=== PATIENT | female | born 1980 | race Caucasian/White ===

== ENCOUNTER → 2018-05-19 | Outpatient (REF) | payer OTHER ==
[2018-05-19 13:38] LABS: CONTROL LINE UCG INT CTR LINE PRESENT; URINE PREG TEST NEGATIVE (NEGATIVE)
== END ==
LOC: M SMT 13:12
DX: N20.0 Calculus of kidney (principal)

== ENCOUNTER → 2018-11-08 | Outpatient (CLI) | payer OTHER ==
--- NOTE | 2018-11-08 21:28 | REP ---
Clinical: Nephrolithiasis. Technique: Two supine views of the abdomen and pelvis. Findings: Small bilateral intrarenal calculi (left greater than right) are identified measuring up to approximately 3 mm. No obvious ureteral calcifications identified. Bowel gas pattern is nonspecific. The skeletal structures are intact. Impression: Small bilateral intrarenal calculi up to 3 mm (left greater than right). Electronically Signed by Cameron Baptiste MD 11/08/2018 09:18 P
== END ==
LOC: M SMT 11:44
PROVIDERS: ATTEND Nurse Practitioner Family
DX: N20.0 Calculus of kidney (principal)

== ENCOUNTER → 2019-03-26 | Outpatient (CLI) | payer OTHER ==
[~2019-03-26] MED LIST: BIRTH CONTROL PO; CLOB0.0548 TOP; MULTCAP PO; OMEP20CA3 PO; ZOLO100T PO
--- NOTE | 2019-03-26 13:12 | REP ---
KUB ONE VIEW: HISTORY: Kidney stones. COMPARISON: 11/08/2018. A small amount of air is present in the intestine. There are no air fluid levels or dilated loops of intestine. There is no pneumoperitoneum. Calcifications are present overlying the left kidney consistent with nephrolithiasis. There is no definite right nephrolithiasis. IMPRESSION: Left nephrolithiasis. Electronically Signed by Eulogio Ruff MD 03/26/2019 01:14 P
== END ==
LOC: M SMT 10:03
PROVIDERS: ATTEND Nurse Practitioner Family
DX: N20.0 Calculus of kidney (principal)
CPT/HCPCS: 74018; G0463

== ENCOUNTER → 2019-03-28 | Outpatient (CLI) | payer OTHER ==
[2019-03-28 18:11] LABS: BLOOD UREA NITROGEN 10 MG/DL (7-18); CALCIUM LEVEL 8.7 MG/DL (8.5-10.1); CARBON DIOXIDE LEVEL 26 MEQ/L (21-32); CHLORIDE LEVEL 103 MEQ/L (98-107); GLOMERULAR FILTRATION RATE > 60.0 (>60); GLUCOSE, FASTING 87 MG/DL (70-100); SODIUM LEVEL 136 MEQ/L (136-145)
[2019-03-28 18:14] LABS: HEMOGLOBIN 12.4 g/dl (12.0-15.5); MEAN CORPUSCULAR HEMOGLOBIN 28.8 pg (27.0-33.0); MEAN CORPUSCULAR HGB CONC 32.6 g/dl (32.0-36.5); MEAN CORPUSCULAR VOLUME 88.2 fl (80.0-96.0); PLATELET COUNT, AUTOMATED 250 10^3/uL (150-450); RED BLOOD COUNT 4.31 10^6/uL (4.00-5.40); WHITE BLOOD COUNT 8.4 10^3/uL (4.0-10.0)
[2019-03-28 18:24] LABS: INR 1.01; PROTHROMBIN TIME 13.4 SECONDS (12.1-14.4)
[2019-03-28 18:25] LABS: PARTIAL THROMBOPLASTIN TIME 28.1 SECONDS (25.4-37.6)
== END ==
LOC: M SMT 11:38
PROVIDERS: ATTEND Nurse Practitioner Family
DX: Z01.818 Encounter for other preprocedural examination (principal); N20.0 Calculus of kidney

== ENCOUNTER 2019-04-05 06:45 | Day surgery (SDC) | payer OTHER ==
[~2019-04-05] VITALS: Ht 170.2 cm; Wt 101.6 kg
[2019-04-05] MEDS ORDERED: LR 1,000 ML IV ONE (07:00)
[2019-04-05 07:37] LABS: URINE PREG TEST NEGATIVE (NEGATIVE)
--- NOTE | 2019-04-05 07:49 | REP ---
Supine abdomen two views: Comparison is 03/26/2019. There are three calculi visible projected over the lower pole of the left kidney measuring up to 6 mm, similar to the prior study. There are two tiny calculi projected over the upper pole right kidney measuring up to 2 mm. These were obscured by bowel gas previously. No other calculi are identified. The bowel gas pattern is normal. Skeletal structures are unremarkable. Impression: Renal calculi as described. Electronically Signed by Nestor Guadarrama MD 04/05/2019 07:40 A
[2019-04-05] MEDS ORDERED: fentaNYL 100 MCG/2 ML INJECTION (J3010) As Ordered ONE (07:57)
[2019-04-05] MEDS ORDERED: PROPOFOL 200 MG/20 ML VIAL As Ordered ONE ×2 (07:57→09:03)
[2019-04-05] MEDS ORDERED: MIDAZOLAM INJ 2 MG/2 ML VIAL (J2250) As Ordered ONE (07:57)
[2019-04-05] MEDS ORDERED: LIDOCAINE 2% INJ 100 MG/5 ML SDV (FOR ANES.) As Ordered ONE (07:57)
[2019-04-05] MEDS ORDERED: LR 1,000 ML IV SCH (09:45)
[2019-04-05] MEDS ORDERED: NORCO, ANEXSIA 5/325MG TABLET (HYDROcodone/ACETAMINOPHEN) PO PRN (09:45)
[2019-04-05] MEDS ORDERED: PERCOCET 5MG/325MG TAB PO PRN ×2 (09:45)
[2019-04-05] MEDS ORDERED: ONDANSETRON 4MG/2ML VIAL (J2405) IV PRN (09:45)
[2019-04-05 12:00] VITALS: BP 118/65
--- NOTE | 2019-04-06 00:09 | RO ---
DATE OF PROCEDURE: 04/05/2019 PREPROCEDURE DIAGNOSIS: Left kidney stone. POSTPROCEDURE DIAGNOSIS: Left kidney stone. PROCEDURE: Left extracorporeal shock wave lithotripsy. SURGEON: Dr. Mohit Agustin ANIMAL TRAINER: None. ANESTHESIA: Monitored anesthesia care (MAC). OPERATIVE INDICATIONS: This is a 39-year-old female with a left kidney stone measuring up to 6 mm. She was brought to the operating room today for the above listed procedure. DESCRIPTION OF PROCEDURE: The patient was brought to the operating room and MAC anesthesia was administered. Prophylactic antibiotics were infused. She was then placed in the supine position in preparation for a left-sided extracorporeal shock wave lithotripsy. Fluoroscopy was utilized to monitor stone position and fragmentation throughout the procedure. Shock waves were then delivered to the left-sided kidney stone ungated. There were no arrhythmias. The stone did appear to fragment well. After 2500 shocks, the procedure was concluded. The patient was then awakened from anesthesia and transported to the recovery room in stable condition. Estimated blood loss: 0 mL. Complications: None. Specimens: None. Plan: The patient will followup in the clinic in a few weeks with imaging prior to assess for residual stone burden.
== END 2019-04-05 12:32 | disposition home or self-care (01) ==
LOC: M SDC 06:45
PROVIDERS: ATTEND Urology
DX: N20.0 Calculus of kidney (principal); K21.9 Gastro-esophageal reflux disease without esophagitis; F41.9 Anxiety disorder, unspecified; F32.9 Major depressive disorder, single episode, unspecified; Z88.2 Allergy status to sulfonamides; Z79.899 Other long term (current) drug therapy
CPT/HCPCS: 50590; 74018; 84703; J2250; J2405; J3010

== ENCOUNTER → 2019-04-26 | Outpatient (CLI) | payer OTHER ==
[~2019-04-26] MED LIST changes: -OMEP20CA3 PO; +OMEP20CA4 PO
--- NOTE | 2019-04-27 07:33 | REP ---
SUPINE ABDOMEN: 04/26/2019. Comparison: 04/05/2019, 03/26/2019, 11/08/2018. Clinical history: Kidney stones. Gas pattern is normal. Bones unchanged. Lower pole calculi are smaller on the current study. Only a tiny calcific density is seen possibly two, but much reduced in size compared to the previous study. Expected course the ureter is without any visible calcification. Electronically Signed by Elliot Guzmán MD 04/27/2019 08:23 A
== END ==
LOC: M SMT 14:09
PROVIDERS: ATTEND Nurse Practitioner Family
DX: N20.0 Calculus of kidney (principal)

== ENCOUNTER → 2019-04-26 | Outpatient (REF) | payer OTHER ==
[2019-05-04 14:07] LABS: CA Oxalate Dihy 10 % (.); Ca Ox Monohydrate 50 % (.)
== END ==
LOC: M SMT 17:02
PROVIDERS: ATTEND Nurse Practitioner Family
DX: N20.0 Calculus of kidney (principal)

== ENCOUNTER → 2019-10-29 | Outpatient (CLI) | payer OTHER ==
[~2019-10-29] MED LIST changes: +OMEP1CAP73 PO; -OMEP20CA4 PO
--- NOTE | 2019-10-30 01:55 | REPPI ---
Clinical: Kidney stone. Technique: Two supine views of the abdomen and pelvis. Findings: Evaluation is somewhat limited due to technique. A punctate nonobstructing calculus in the lower pole left kidney cannot be excluded. Bowel gas pattern is nonspecific. No organomegaly. No further abnormal calcifications. Skeletal structures are intact. Impression: 1. Limited examination of the urinary tract system. Punctate nonobstructing left renal calculus cannot be excluded. Electronically Signed by Cameron Baptiste MD 10/30/2019 01:46 A
== END ==
LOC: M PLALAB 09:59
PROVIDERS: ATTEND Nurse Practitioner Family
DX: N20.0 Calculus of kidney (principal)
CPT/HCPCS: 74018; G0463

== ENCOUNTER → 2020-11-11 | Outpatient (CLI) | payer OTHER ==
--- NOTE | 2020-11-11 11:11 | REPPI ---
INDICATION: KIDNEY STONES COMPARISON: 10/29/2019 TECHNIQUE: Supine view of the abdomen and pelvis. FINDINGS: 2 mm nonobstructing left lower pole renal calculus suggested. Further evaluation of the urinary tract system is limited and essentially nondiagnostic due to overlying bowel gas. Bowel gas pattern is nonspecific and without obstruction or perforation. No organomegaly. No further significant abnormal calcifications. Skeletal structures intact. IMPRESSION: 2 mm nonobstructing left renal calculus suggested. Further evaluation of the urinary tract system is limited. Normal abdominal radiograph. <Electronically signed by Cameron Baptiste > 11/11/20 110
== END ==
LOC: M PLAIMG 10:09
PROVIDERS: ATTEND Nurse Practitioner Family
DX: N20.0 Calculus of kidney (principal)
CPT/HCPCS: 74018; G0463

== ENCOUNTER → 2021-10-08 | Outpatient (CLI) | payer OTHER ==
--- NOTE | 2021-10-08 08:42 | REPMRS ---
Patient History The patient states she has not had a clinical breast exam in over a year. Patient had first child at age 31. Family history of breast cancer in maternal grandmother, breast cancer in paternal grandmother. Patient states she had a left breast bx in 2012-benign Tomosynthesis is performed. Volpara breast density is c. No breast complaints today Patient signed the MRS sheet 1st vaccine 11/2610-Uxszwy-darb arm 2nd vaccine /-left arm 3rd vaccine 08/07-left arm Priors done @ [facility] Patient Identification Verified Patient denied Digital Woman Screen Mammo: October 08, 2021 - Exam #: [id number] Bilateral CC and MLO view(s) were taken. Technologist: Emily Baker, Technologist Prior study comparison: September 06, 2018, bilateral breast MRI, performed at [facility]. August 02, 2018, left breast ultrasound unilat limited, performed at [facility]. August 02, 2018, diagnostic bilateral mammo, performed at [facility]. May 20, 2017, bilateral digital mammo screening bilat, performed at [facility]. FINDINGS: There are scattered fibroglandular densities. There has been no change in the appearance of the mammogram from the prior studies. There is a mild amount of residual fibroglandular tissue which is fairly symmetric. There is no interval development of dominant mass, architectural distortion, or clustered microcalcification suggestive of malignancy. Bilateral implants appear intact. No significant changes when compared with prior studies. Assessment: BI-RADS/ACR category 1 mammogram. Negative Mammogram. Recommendation Routine screening mammogram in 1 year (for women over age 40). This mammogram was interpreted with the aid of an FDA-approved computer-aided dectection system. The Lifetime Breast Cancer Risk is estimated at 26.9%. Yearly supplemental screening MRI of the breasts is recommended for patients with an elevated lifetime risk of breast cancer of 20% or greater, in addition to annual screening mammography, staggered every 6 months. Electronically Signed By: Nestor Knight MD 10/08/21 0841
== END ==
LOC: M WHC 06:53
PROVIDERS: ATTEND Nurse Practitioner Primary Care
DX: Z12.31 Encounter for screening mammogram for malignant neoplasm of breast (principal); Z80.3 Family history of malignant neoplasm of breast